=== PATIENT | male | born 1980 | race Caucasian/White ===

== ENCOUNTER 2016-07-23 10:11 | Inpatient (IN) | payer BC, OTHER ==
[~2016-07-23] VITALS: Ht 170.2 cm; Wt 64.4 kg
--- NOTE | 2016-07-24 01:00 | NUR ---
ADMISSION NOTE : Pt. is 35 years old male, admitted on 07/24/2016 at 00:15 for Heroin, Meth, Crack, ETOH dependency. Pt. is on regular diet, Full Code, NKA for food and meds. He was able to provide urine drug screen, see lab results . Primary Care Provider is in [place], [place]. Pt. denies history of seizures , denies hospitalizations within past 30 days, was in ER because of right AC abscess , confirm history of abuse, but will talk about this issue with MD only. Pt. confirms history of audio and visual hallucinations, last ones yesterday and two weeks ago. Pt. states received flu vaccination in 01/2016 and PNA vaccination within last 5 years. Educational materials provided on substance abuse, fall and seizures precautions. Pt, was arrested x5, was 9 months in the halfway. Pt. oriented to his room and the unit, encourage to notify staff with any concern. Upon admission pt. is anxious, oriented x3, calm, friendly and cooperative. XZ=368/85, HR=82/min, RR=16/min, breathing unlabored and even , SpO2=98%, [id number], Height=57, COWS=4. Skin is warm and dry, redness noticed in the right AC area. Safety measures in place : bed on lowest position with side rails x2 up for safety, call light within reach. Will continue to monitor closely and offer help. SUBSTANCE ABUSE HISTORY IS FOLOOW : Heroin 3gm QD IV since 2006, last dose on 07/23/2016. Pt.uses since 2002. Methamphetamine QD 2-3 doses smoking since 05/2016, last dose on 07/23/2016 . Pt. uses Meth. Since 05/2016. Crack 0.25gm IV QD since 05/2016, last dose on 07/23/2016. Pt. uses crack since 05/2016 Vodka 200ml QD PO since 05/2016, lasy dose on 07/23/2016. Pt. drinks alcohol since 1995. Occasionally pt. uses Cocaine 0.5gm IV a day, Marijuana 1gm smoking, x3/week. [place] HISTORY : Pt. states x7 detox. attempts, last time in [facility] in 10/2015. Longest sober period was 9 months in 2012. PAST MEDICAL HISTORY : Thoracic Kyphosis, 01/2015- Thoracic vertebral operation because of infection. Both heels fractures in 1990. ADD, Anxiety, Depression. FAMILY HISTORY : ETOH abuse, HTN, seizures.
[2016-07-24 01:26] LABS: *AMPHETAMINE, URINE POSITIVE (NEGATIVE); *BARBITURATE, URINE NEGATIVE (NEGATIVE); *CANNABINOID, URINE POSITIVE (NEGATIVE); *COCCAINE, URINE POSITIVE (NEGATIVE); *OPIATE, URINE POSITIVE (NEGATIVE); *PHENCYCLIDINE SCREEN,URINE NEGATIVE (NEGATIVE)
[2016-07-24] MEDS ORDERED: LOPERAMIDE HCL 2 MG CAPSULE PO PRN ×2 (02:00)
[2016-07-24] MEDS ORDERED: LORAZEPAM 1 MG TABLET PO PRN ×2 (02:00)
[2016-07-24] MEDS ORDERED: THIAMINE HCL 200 MG/2 ML VIAL IM ONE (02:00)
[2016-07-24] MEDS ORDERED: diphenhydrAMINE 50 MG CAPSULE PO PRN (02:00)
[2016-07-24] MEDS ORDERED: ONDANSETRON ODT 4 MG TAB.RAPDIS SL PRN (02:00)
[2016-07-24] MEDS ORDERED: LORAZEPAM 2 MG/1 ML VIAL IM PRN (02:00)
[2016-07-24] MEDS ORDERED: HYDROXYZINE PAMOATE 25 MG CAPSULE PO PRN (02:00)
[2016-07-24] MEDS ORDERED: MAGNESIUM HYDROXIDE 30 ML LIQUID UDC PO PRN (02:00)
[2016-07-24] MEDS ORDERED: CLONIDINE HCL 0.1 MG TABLET PO PRN (02:00)
[2016-07-24] MEDS ORDERED: BUPRENORPHINE HCL 2 MG TAB.SUBL SL PRN (02:00)
[2016-07-24] MEDS ORDERED: ACETAMINOPHEN 325 MG TABLET PO PRN (02:00)
[2016-07-24] MEDS ORDERED: MAG HYDROX/AL HYDROX/SIMETH 30 ML LIQUID UDC PO PRN (02:00)
[2016-07-24] MEDS ORDERED: THIAMINE HCL 200 MG/2 ML VIAL ONE (02:20)
[2016-07-24 03:02] LABS: BASOPHILS # (AUTO) 0.1 K/uL (0.0-0.2); BASOPHILS % (AUTO) 1.3 % (0.0-2.0); EOSINOPHILS # (AUTO) 0.2 K/uL (0.0-0.7); EOSINOPHILS % (AUTO) 3.8 % (0.0-7.0); HEMATOCRIT 45.6 % (40.0-50.0); HEMOGLOBIN 15.3 g/dL (14.0-18.0); LYMPHOCYTES # (AUTO) 1.5 K/uL (0.8-4.8); LYMPHOCYTES % (AUTO) 28.1 % (20.5-51.5); MEAN CORPUSCULAR HEMOGLOBIN 29.4 uug (27.0-31.0); MEAN CORPUSCULAR HGB CONC 34 g/dL (32.0-37.0); MEAN CORPUSCULAR VOLUME 87.9 fL (82.0-92.0); MONOCYTES # (AUTO) 0.6 K/uL (0.1-1.30); MONOCYTES % (AUTO) 11.2 % (0.0-11.0); NEUTROPHILS # (AUTO) 2.9 K/uL (1.8-8.9); NEUTROPHILS % (AUTO) 55.6 % (38.5-71.5); PLATELET COUNT (AUTO) 207 K/uL (150-450); RED BLOOD CELL COUNT(AUTO) 5.19 MIL/uL (4.70-6.10); RED CELL DISTRIBUTION WIDTH 12.5 % (11.5-14.5); WHITE BLOOD COUNT (AUTO) 5.3 K/uL (4.0-11.2)
[2016-07-24 03:11] LABS: ETHANOL < 3 MG/DL (0-0)
[2016-07-24 03:12] LABS: ALANINE AMINOTRANSFERASE 25 U/L (16-63); ALBUMIN 3.4 g/dL (3.4-5.0); ALKALINE PHOSPHATASE 108 U/L (50-136); AMYLASE 28 U/L (25-115); ASPARTATE AMINOTRANSFERASE 20 U/L (15-37); BILIRUBIN,TOTAL 0.4 mg/dL (0.2-1.0); CALCIUM 8.8 mg/dL (8.5-10.1); CHLORIDE 100 mmol/L (98-107); GFR 84 mL/min (>60); GLUCOSE 135 mg/dL (74-106); LIPASE 94 U/L (73-393); MAGNESIUM 1.9 mg/dL (1.8-2.4); POTASSIUM 3.7 mmol/L (3.5-5.1); SODIUM SERUM 139 mmol/L (136-145); TOTAL PROTEIN, SERUM 7.4 g/dL (6.4-8.2); UREA NITROGEN, BLOOD 16 mg/dL (7-18)
[2016-07-24 03:17] LABS: CARBON DIOXIDE 33 mmol/L (21-32)
[2016-07-24 03:23] LABS: THYROID STIMULATING HORMONE 1.767 mIU/mL (0.358-3.740)
[2016-07-24 03:29] LABS: HIV-1 p24 ANTIGEN NON REACTIVE (NONREACTIVE); HIV-1/2 ANTIBODY NON REACTIVE (NONREACTIVE)
[2016-07-24 04:00] VITALS: BP 105/49
[2016-07-24] MEDS ORDERED: GABA800T2 PO (04:01)
--- NOTE | 2016-07-24 06:42 | NUR ---
END OF SHIFT NOTE : Pt. is 35 years old male, admitted on 07/24/2016 at 00:15 for Heroin, Meth, Crack, ETOH dependency. Pt. is on regular diet, Full Code, NKA for food and meds. He was able to provide urine drug screen, see lab results . Pt. confirms history of audio and visual hallucinations, last ones yesterday and two weeks ago. Skin is warm and dry, redness noticed in the right AC area. Pt denies nausea, vomiting and diarrhea. No PRNs were given during my shift. V/S remain WNL. RR=16, even and unlabored, lungs clear upon auscultation, abdomen soft and non- distended. Pt denies nausea, vomiting and diarrhea. LAST CIWA=2 ,COWS=4 at 0400 , INTAKE= 651 ml, voided x 1, slept 3 hours. Safety measures in place : bed on lowest position with side rails x2 up for safety, call light within reach. Will continue to monitor closely and offer help.
--- NOTE | 2016-07-24 07:05 | NUR ---
Start of Shift Endorsement received from nightshift nurse. Pt is a 35 y/o male admitted for Heroin, meth and vodka dependence. Pt has been placed under observation until farther evaluation by Dr. Nobles. Pt did not receive any PRN medications. Reports sleeping 3 hours. PT is alert and oriented x4. Pt is in STABLE condition at this time. Remains compliant with medication and diet regimen. All needs have been met, All safety measures in place per hospital policy. Bed in lowest position, side rails up x2, call-light within reach. Will continue to monitor
[2016-07-24 08:00] VITALS: BP 117/64
[2016-07-24] MEDS: THIAMINE HCL 100 MG TABLET PO SCH (08:56)
[2016-07-24] MEDS: MULTIVITAMINS,THERAPEUTIC TABLET PO SCH (08:56)
[2016-07-24] MEDS: FOLIC ACID 1 MG TABLET PO SCH (08:56)
[2016-07-24 12:00] VITALS: BP 109/72
--- NOTE | 2016-07-24 13:20 | NUR ---
PRN Motrin Administered PRN Motrin 400mg for 5/10 generalized body pain.
[2016-07-24] MEDS: GABAPENTIN 300 MG CAPSULE PO SCH ×2 (13:29→17:00)
[2016-07-24] MEDS: IBUPROFEN 400 MG TABLET PO PRN (13:29)
--- NOTE | 2016-07-24 14:00 | NUR ---
Medication re-assessment PT reports relief from pain, rated 2/10 pain at this time. Medication was effective.
[2016-07-24 16:00] VITALS: BP 118/65
[2016-07-24] MEDS ORDERED: GABAPENTIN 300 MG CAPSULE PO SCH (17:00)
--- NOTE | 2016-07-24 18:46 | NUR ---
End of Shift Endorsement given to nightshift nurse. Pt is a 35 y/o male admitted for Heroin, meth and vodka dependence. Pt has been placed under observation until farther evaluation by Dr. Nobles, pt is being treated by PRN medications for his symptoms. Subutex taper is expected to began on 07/25/16. Pt received PRN Motrin 400mg for generalized body aches, medication was effective. Pt has spent the day in bed, reporting that he just wants to rest and catch up on sleep. PT is alert and oriented x4. Pt is in STABLE condition at this time. Remains compliant with medication and diet regimen. All needs have been met, All safety measures in place per hospital policy. Bed in lowest position, side rails up x2, call-light within reach. Will continue to monitor
--- NOTE | 2016-07-24 19:15 | NUR ---
Start of Shift Patient Received. Patient is in his room, sleeping but easily arousbale to verbal stimuli. Breathing even and non labored. Patient was admitted earlier this afternoon 07/24/16 for Opiate Dependence, under the care of Dr. Nobles, with orders placed to start 5 day Subutex and 5 day Ativan taper tomorrow morning 07/25/16. PRN Medications available for increased signs and symptoms of withdrawal. Patient verbalizes no known allergies, wishes to be full code, follows a regular diet, skin intact, placed on fall precautions. Patients past medical history of Thoracic kyphosis, Thoracic vertebral operations due to infection in 01/2015, fractures to Bilateral heels in 1990, ADD, Anxiety, and Depression. Per endorsement, patient noted with a COWS of 7 and CIWA of 7. PRN Motrin given and noted to be effective. Patient noted to sleep in intervals. All needs attended to promptly. Will continue to monitor.
[2016-07-24 20:39] VITALS: BP 118/72
[2016-07-25 00:20] VITALS: BP 122/80
[2016-07-25] MEDS: DICYCLOMINE HCL 20 MG TABLET PO PRN ×2 (02:03→17:20)
--- NOTE | 2016-07-25 02:11 | NUR ---
PRN Medication Administration Patient is noted awake with increased nausea, increased anxiety, chills, and stomach cramps. PRN Zofran, Bentyl, and Clonidine. Patient able to tolerate well. Will continue to monitor for effectiveness.
[2016-07-25 04:11] VITALS: BP 122/75
--- NOTE | 2016-07-25 07:34 | NUR ---
End of Sift Patient is in bed sleeping. Breathing even and non labored. Patient was admitted on 07/24/16 for Opiate Dependence, under the care of Dr. Nobles, with orders placed to start 5 day Subutex and 5 day Ativan taper tomorrow morning 07/25/16. PRN Medications available for increased signs and symptoms of withdrawal. Patient verbalizes no known allergies, wishes to be full code, follows a regular diet, skin intact, placed on fall precautions. Patients past medical history of Thoracic Kyphosis, Thoracic vertebral operations due to infection in 01/2015, fractures to Bilateral heels in 1990, ADD, Anxiety, and Depression. Patient was given PRN Zofran, Clonidine and Bentyl for increased signs and symptoms of withdrawal. PRN Medications noted to be effective. Patient noted to sleep in intervals. All needs attended to promptly. Will endorse to continue to monitor.
--- NOTE | 2016-07-25 07:45 | NUR ---
START OF SHIFT NOTE Pt is a 35 yr old male, AA&Ox3. Pt was admitted on 07/23/16 for Opiate/ETOH Dependence and is to start of 5 day Subutex taper as ordered. Pt is full code regular diet and NKA. Pt received Zofran PRN, Bentyl PRN, and Clonidine PRN at 0200. Medication was effective. Pt slept for 9 hrs. Pt is currently c/o anxiety and muscle aching. Fine tremors are seen. Skin is intact, warm and moist to touch. Pt c/o mild nausea. No episodes of vomiting was reported. Encouraged increase fluid intake. Will continue to f/u with eMAR. Safety precaution observed. Call light is within reach. Will continue to monitor.
[2016-07-25 08:18] VITALS: BP 149/86
[2016-07-25] MEDS: MULTIVITAMINS,THERAPEUTIC TABLET PO SCH (08:20)
[2016-07-25] MEDS: BUPRENORPHINE HCL 2 MG TAB.SUBL SL SCH ×4 (08:20→21:10)
[2016-07-25] MEDS: THIAMINE HCL 100 MG TABLET PO SCH (08:20)
[2016-07-25] MEDS: GABAPENTIN 300 MG CAPSULE PO SCH ×2 (08:20→12:45)
[2016-07-25] MEDS: FOLIC ACID 1 MG TABLET PO SCH (08:20)
[2016-07-25] MEDS ORDERED: TUBERCULIN,PURIF.PROT.DERIV. 5 TU/0.1 ML TEST ID ONE (09:00)
[2016-07-25] MEDS ORDERED: 5 DAY TAPER BUPRENORPHINE -SERENITY PROTOCOL SL PRN (09:00)
[2016-07-25 10:07] LABS: HEPATITIS B CORE AB, IgM Negative (Negative); HEPATITIS B SURFACE AG Negative (Negative)
[2016-07-25 12:47] VITALS: BP 147/102
[2016-07-25 16:00] VITALS: BP 134/96
--- NOTE | 2016-07-25 17:20 | NUR ---
PRN MEDICATION GIVEN Pt c/o abdominal cramping. Bentyl 20mg PRN was given. Medication was effective. Encouraged increase fluid intake.
--- NOTE | 2016-07-25 18:51 | NUR ---
COMMUNICATION Discussed with Dr. Ames in regards to pt c/o of insomnia. Pt stated he would take Remeron for sleep. Received new order for Remeron 15mg PO QHS for Insomnia. new order was noted and carried out.
--- NOTE | 2016-07-25 18:58 | NUR ---
END OF SHIFT Pt is a 35 yr old male, AA&Ox3. Pt was admitted on 07/23/16 for Opiate/ETOH Dependence and started on 5 day Subutex taper as ordered. Medication dl well. Pt is full code regular diet and NKA. Pt has been cooperative with plan of care and medication regime. Pt attended group session as ordered. Pt c/o abdominal cramping at 1720. Bentyl PRN was given and effective. Last COWS score was 6, CIWA score was 2. No acute distress noted. Skin is intact, warm and moist to touch. Pt denies any n/v at this time. Encouraged increase fluid intake. Safety precaution observed. Call light is within reach.
--- NOTE | 2016-07-25 19:10 | NUR ---
Start of Shift Patient Received. Patient is in activities room participating in group meeting. Patient was admitted on 07/24/16 for Opiate Dependence, under the care of Dr. Nobles, with orders placed to start 5 day Subutex. PRN Medications available for increased signs and symptoms of withdrawal. Patient verbalizes no known allergies, wishes to be full code, follows a regular diet, skin intact, placed on fall precautions. Patients past medical history of Thoracic Kyphosis, Thoracic vertebral operations due to infection in 01/2015, fractures to Bilateral heels in 1990, ADD, Anxiety, and Depression. Per endorsement, patient started on Subutex taper. Patient also started on Remeron 15mg QHS for sleep with first dose to be given tonight. Last COWS noted 6 and Last CIWA 2. All needs attended to promptly. Will continue to monitor.
[2016-07-25 20:45] VITALS: BP 135/94
[2016-07-25] MEDS ORDERED: GABAPENTIN 300 MG CAPSULE PO SCH (21:00)
[2016-07-25] MEDS: MIRTAZAPINE 15 MG TABLET PO SCH (21:10)
[2016-07-25] MEDS: GABAPENTIN 400 MG CAPSULE PO SCH (21:19)
--- NOTE | 2016-07-26 00:25 | NUR ---
Vitals, CIWA and COWS Patient refused 0000 Vitals prior to bed. Patient verbalized "If Im sleeping then ill pass." Patient noted in bed sleeping. Breathing even and non labored. No signs of pain or discomfort noted. Patients respirations noted to be 14. CIWA and COWS not able to be completed as per order. Will continue to monitor. Addendum: 07/27/16 at 0142 by GINA SANDERSON LVN Amended: Links added.
[2016-07-26 00:32] VITALS: BP 126/74
[2016-07-26 04:20] VITALS: BP 130/88
--- NOTE | 2016-07-26 07:03 | NUR ---
End of Sift Patient is in bed sleeping. Breathing even and non labored. Patient was admitted on 07/24/16 for Opiate Dependence, under the care of Dr. Nobles, with orders placed to start 5 day Subutex and 5 day Ativan taper tomorrow morning 07/25/16. PRN Medications available for increased signs and symptoms of withdrawal. Patient verbalizes no known allergies, wishes to be full code, follows a regular diet, skin intact, placed on fall precautions. Patients past medical history of Thoracic kyphosis, Thoracic vertebral operations due to infection in 01/2015, fractures to Bilateral heels in 1990, ADD, Anxiety, and Depression. No PRN medications administered. All needs attended to promptly. Will endorse to continue to monitor.
[2016-07-26 08:00] VITALS: BP 145/83
--- NOTE | 2016-07-26 08:00 | NUR ---
START OF SHIFT NOTE: REPORT RECEIVED FROM SOLDER LEVELER [employer]ED [employer] BOARDS NURSE. PT IS A 35YO MALE ADMITTED ON 07/23/16 FOR MEDICALLY SUPERVISED WITHDRAWAL: PT REPORTS USING 3GM HEROIN, 2-3 DOSES METHAMPHETAMINE, 0.25GM CRACK COCAINE, AND 200ML VODKA DAILY SINCE 05/2016. PT IS ON DAY 2 OF A 5-DAY SUBUTEX TAPER. LAST SOLDER LEVELER [employer] BOARDS COWS=8, CIWA=6. PT DID NOT REQUIRE PRN MEDICATION THROUGHOUT THE NIGHT. PT IS ON REGULAR DIET. PT REPORTS PAST MED HX OF THORACIC KYPHOSIS, THORACIC VERTEBRAL OPERATION IN 2014, BILATERAL HEEL FX IN 1990, ADD, ANXIETY, DEPRESSION. PT REPORTS NKA AND IS A FULL CODE. PT IS CURRENTLY IN BED AND REPORTS FATIGUE; PT STATES THAT NEW ORDER FOR REMERON WAS EFFECTIVE AND HE SLEPT WELL LAST NIGHT. ALL NEEDS ATTENDED AND MET AT THIS TIME. WILL CONTINUE TO MONITOR.
[2016-07-26] MEDS: FOLIC ACID 1 MG TABLET PO SCH (09:29)
[2016-07-26] MEDS: THIAMINE HCL 100 MG TABLET PO SCH (09:29)
[2016-07-26] MEDS: MULTIVITAMINS,THERAPEUTIC TABLET PO SCH (09:29)
[2016-07-26] MEDS: GABAPENTIN 400 MG CAPSULE PO SCH ×3 (09:30→21:51)
[2016-07-26] MEDS: BUPRENORPHINE HCL 2 MG TAB.SUBL SL SCH ×3 (09:30→21:52)
[2016-07-26 12:00] VITALS: BP 132/98
[2016-07-26 16:00] VITALS: BP 144/103
--- NOTE | 2016-07-26 19:10 | NUR ---
Start of Shift Patient Received. Patient is in activities room participating in group meeting. Patient was admitted on 07/24/16 for Opiate Dependence, under the care of Dr. Nobles, with orders placed to start 5 day Subutex. PRN Medications available for increased signs and symptoms of withdrawal. Patient verbalizes no known allergies, wishes to be full code, follows a regular diet, skin intact, placed on fall precautions. Patients past medical history of Thoracic Kyphosis, Thoracic vertebral operations due to infection in 01/2015, fractures to Bilateral heels in 1990, ADD, Anxiety, and Depression. Per endorsement, patient received no PRN medications during shift. Patient was active with social groups and is tolerating plan of care well. All needs attended to promptly. Will continue to monitor.
--- NOTE | 2016-07-26 19:30 | NUR ---
END OF SHIFT NOTE: PT IS A 35YO MALE ADMITTED TO [facility] ON 07/23/16 FOR MEDICALLY SUPERVISED WITHDRAWAL FROM OPIATES AND ETOH. PT REPORTS USING 3GM HEROIN, 2-3 DOSES METHAMPHETAMINE, 0.25GM CRACK COCAINE, AND 200ML VODKA DAILY SINCE 05/2016. PT CONTINUES ON DAY 2 OF A 5-DAY SUBUTEX TAPER. LAST COWS=2, CIWA=1. SUBUTEX TAPER EFFECTIVELY MANAGED S/S OF WITHDRAWAL AND COWS/CIWA SCORES REMAINED LOW AND NO PRN MEDICATIONS WERE NECESSARY. PT IS ON REGULAR DIET. PT REPORTS PAST MED HX OF THORACIC KYPHOSIS, THORACIC VERTEBRAL OPERATION IN 2014, BILATERAL HEEL FX IN 1990, ADD, ANXIETY, DEPRESSION. PT REPORTS NKA AND IS A FULL CODE. PT CONSUMED 0% OF BREAKFAST, AND 100% OF LUNCH AND DINNER, HAD INTAKE 2400ML, OUTPUT URINE X4 AND STOOL X1. PT ENDORSED TO FLOOR INSTALLER NURSE.
[2016-07-26 20:45] VITALS: BP 130/95
[2016-07-26] MEDS: MIRTAZAPINE 15 MG TABLET PO SCH (21:50)
[2016-07-26] MEDS: IBUPROFEN 400 MG TABLET PO PRN (21:51)
[2016-07-26] MEDS: DICYCLOMINE HCL 20 MG TABLET PO PRN (21:51)
--- NOTE | 2016-07-26 22:00 | NUR ---
PRN Medication Administration Patient verbalized increased stomach cramps and pain of 5/10 due to a headache. PRN Motrin and Bentyl given with routine medications. Will continue to monitor for effectiveness.
--- NOTE | 2016-07-26 23:00 | NUR ---
PRN Medication Reassessment Patient noted in bed sleeping. Breathing even and non labored. No signs of pain or discomfort noted. PRN Bentyl and Motrin noted to be effective. Will continue to monitor.
--- NOTE | 2016-07-27 04:14 | NUR ---
Vitals, CIWA and COWS Patient refused 0400 Vitals prior to bed. Patient verbalized "If Im sleeping then ill pass." Patient noted in bed sleeping. Breathing even and non labored. No signs of pain or discomfort noted. Patients respirations noted to be 14. CIWA and COWS not able to be completed as per order. Will continue to monitor. Addendum: 07/27/16 at 0414 by GINA SANDERSON LVN Amended: Links added.
--- NOTE | 2016-07-27 07:01 | NUR ---
End of Shift Patient is in bed sleeping. Breathing even and non labored. Patient was admitted on 07/24/16 for Opiate Dependence, under the care of Dr. Nobles, with orders placed to start 5 day Subutex and 5 day Ativan taper tomorrow morning 07/25/16. PRN Medications available for increased signs and symptoms of withdrawal. Patient verbalizes no known allergies, wishes to be full code, follows a regular diet, skin intact, placed on fall precautions. Patients past medical history of Thoracic kyphosis, Thoracic vertebral operations due to infection in 01/2015, fractures to Bilateral heels in 1990, ADD, Anxiety, and Depression. PRN Bentyl and Motrin administered with routine 2100 medications. All PRN medications noted to be effective. All needs attended to promptly. Will endorse to continue to continue plan of care as ordered.
--- NOTE | 2016-07-27 07:40 | NUR ---
START OF SHIFT NOTE Pt is a 35 yr old male, AA&Ox3. Pt was admitted on 07/23/16 for Opiate/ETOH Dependence and is on 5 day Subutex taper as ordered. Pt is full code regular diet and NKA. Pt received Motrin PRN and Bentyl PRN during the night. Medication was effective. Pt slept for 6 hrs. Pt is in bed resting with respirations even and unlabored. No acute distress noted. Skin is intact, warm and dry to touch. No tremors seen or felt. Pt denies any n/v at this time. Encouraged increase fluid intake. Safety precaution observed. Call light is within reach. Will continue to monitor.
[2016-07-27 08:01] VITALS: BP 112/80
[2016-07-27] MEDS ORDERED: BUPRENORPHINE HCL 2 MG TAB.SUBL SL SCH (09:00)
[2016-07-27] MEDS: MULTIVITAMINS,THERAPEUTIC TABLET PO SCH (09:23)
[2016-07-27] MEDS: GABAPENTIN 400 MG CAPSULE PO SCH ×3 (09:23→21:21)
[2016-07-27] MEDS: FOLIC ACID 1 MG TABLET PO SCH (09:23)
[2016-07-27] MEDS: THIAMINE HCL 100 MG TABLET PO SCH (09:23)
[2016-07-27 12:00] VITALS: BP 114/88
[2016-07-27] MEDS: BUPRENORPHINE HCL 2 MG TAB.SUBL SL SCH ×2 (15:06→21:21)
[2016-07-27 16:00] VITALS: BP 124/85
--- NOTE | 2016-07-27 19:30 | NUR ---
START OF SHIFT NOTE : Pt is a 35 yr old male, AA&Ox3. Pt was admitted on 07/23/16 for Opiate/ETOH Dependence and is on 5 day Subutex taper as ordered. Pt is full code regular diet and NKA. Pt is in bed resting with RR=16 , even and unlabored. No acute distress noted. Skin is intact, warm and dry to touch. No tremors seen. Pt denies any n/v at this time. Encouraged increase fluid intake. . Safety measures in place : bed on lowest position with side rails x2 up for safety, call light within reach. Will continue to monitor closely and offer help.
--- NOTE | 2016-07-27 19:35 | NUR ---
END OF SHIFT NOTE Pt is a 35 yr old male, AA&Ox3. Pt was admitted on 07/23/16 for Opiate/ETOH Dependence and is on 5 day Subutex taper as ordered. Pt is full code regular diet and NKA. Pt has been cooperative with medication regime and attended group sessions. No PRN's were given. Last COWS score was 2, CIWA score was 1. No acute distress noted. Skin is intact, warm and dry to touch. No tremors seen or felt. Pt denies any n/v at this time. Encouraged increase fluid intake. Safety precaution observed. Call light is within reach.
[2016-07-27 20:00] VITALS: BP 130/84
--- NOTE | 2016-07-27 21:00 | NUR ---
REJI ALMENDAREZ MOTRIN Pt. complains of sleeplessness, body ache 5-6/10, stomach cramps. RR=16, breathing even and unlabored. Safety measures in place : bed on lowest position with side rails x2 up for safety, call light within reach. Will continue to monitor closely and offer help.
[2016-07-27] MEDS: MIRTAZAPINE 15 MG TABLET PO SCH (21:21)
[2016-07-27] MEDS: IBUPROFEN 400 MG TABLET PO PRN (21:33)
[2016-07-27] MEDS: DICYCLOMINE HCL 20 MG TABLET PO PRN (21:33)
--- NOTE | 2016-07-27 21:55 | NUR ---
REASSESSMENT REJI FLORES MOTRIN Pt. is able to rest quietly and ready to sleep, pain level decreased to 2-3/10. RR=16, breathing even and unlabored. Safety measures in place : bed on lowest position with side rails x2 up for safety, call light within reach. Will continue to monitor closely and offer help.
--- NOTE | 2016-07-28 06:56 | NUR ---
END OF SHIFT NOTE : Patient was admitted on 07/24/16 for Opiate Dependence, under the care of Dr. Nobles, with orders placed to start 5 day Subutex and 5 day Ativan taper on 07/25/16. Patient verbalizes no known allergies, wishes to be full code, follows a regular diet, skin intact, placed on fall precautions. PRN Bentyl, Benadryl and Motrin administered with routine 2100 medications. All PRN medications noted to be effective. Pt remains compliant with the treatment plan. Pt denies nausea, vomiting and diarrhea. V/S remain WNL. RR=16, even and unlabored, lungs clear upon auscultation, abdomen soft and non- distended. Pt denies nausea, vomiting and diarrhea. INTAKE= 855 ml, voided x 2, slept 8 hours. Safety measures in place : bed on lowest position with side rails x2 up for safety, call light within reach. Will continue to monitor closely and offer help.
--- NOTE | 2016-07-28 07:00 | NUR ---
Start of Shift Notes: Received patient in his room. Alert and oriented x 4. Verbally responsive. Appears anxious and tremulous at this time. Able to make his needs known. Respirations even and unlabored. No SOB noted. Skin warm and dry to touch. Abdomen soft and non-distended. BS (+) in all 4 quadrants. No complains of N/V/D or constipation noted. Bladder non-distended. No complains of dysuria noted. Voids independently. Ambulatory ad zoltan with steady gait. Patient is a 35 year old male admitted for opiate/meth/crack cocaine and ETOH dependence who was placed on a 5-day Subutex taper as ordered. No adverse reactions noted. Has past medical hx thoracic kyphosis, both heel fractures, ADD, anxiety and depression. NKA. FULL CODE. Regular diet. On fall and seizure precautions. Educated patient on the current plan of care for the day and the medication regimen. Encouraged oral fluid intake and encouraged group participation to learn new skills to prevent relapse. Will continue to monitor closely.
[2016-07-28 08:00] VITALS: BP 109/74
[2016-07-28] MEDS: GABAPENTIN 400 MG CAPSULE PO SCH ×3 (08:13→21:50)
[2016-07-28] MEDS: MULTIVITAMINS,THERAPEUTIC TABLET PO SCH (08:13)
[2016-07-28] MEDS: BUPRENORPHINE HCL 2 MG TAB.SUBL SL SCH ×3 (08:13→21:50)
[2016-07-28] MEDS: FOLIC ACID 1 MG TABLET PO SCH (08:14)
[2016-07-28] MEDS: THIAMINE HCL 100 MG TABLET PO SCH (08:14)
[2016-07-28 12:00] VITALS: BP 127/82
[2016-07-28 16:00] VITALS: BP 130/89
--- NOTE | 2016-07-28 18:41 | NUR ---
End of Shift Notes: Patient is a 35 year old male admitted for opiate/meth/crack cocaine/EToh dependence who was placed on a 5-day Subutex taper as ordered. No adverse reactions noted. Has past medical hx of thoracic kyphosis, both heel fracture, ADD, anxiety and depression. NKA. FULL CODE. Regular diet. On fall and seizure precautions. Prior to admission, patient was using 3 grams of Heroin IV, methamphetamine 2 to 3 doses smoked, 0.25 gram of crack cocaine and 200cc of Vodka. VS monitored closely q 4 hours. No significant abnormalities noted. Withdrawal symptoms were closely monitored. Initial COWS 3, CIWA 2. Patient presented with mild bone/joint aches, mild anxiety and tremors felt not observed. Last COWS 2,/CIWA 2. Per patient, Subutex has been helping him with his withdrawal symptoms. Patient was able to participate in group despite his withdrawal symptoms. Safety precautions in place. Call light kept in reach. All needs met and attended. Will continue to monitor closely.
[2016-07-28 20:00] VITALS: BP 120/77
--- NOTE | 2016-07-28 20:00 | NUR ---
Start of Shift Pt is a 25-year old, male, admitted for Opiate dependence. Pt has completed a 3 day subutex taper and was on PRN ativan. Pt tolerated taper well. Pt has a PMHx of Hep C, Depression and Sleep Disorder. Pt has an abscess to his left arm and is on two antibiotics for treatment. I&D done 07/28/[address] Ronnie Quintanilla. Dressing on the left arm is clean, dry and intact. With wound care order. IV access on the left upper arm is patent and intact, saline flush done, no resistance noted. Pt is AAOx4, no SOB nor anxiety noted at this time. Pt is ambulatory with steady gait. No skin issues besides the I&D done by MD. . Fall, universal, seizure and safety prec in place. Call light within reach. Kept pt warm, dry and comfortable. Last COWS=2, CIWA=2. Will continue to monitor.
[2016-07-28] MEDS: DICYCLOMINE HCL 20 MG TABLET PO PRN (21:50)
[2016-07-28] MEDS: MIRTAZAPINE 15 MG TABLET PO SCH (21:50)
[2016-07-28] MEDS: IBUPROFEN 400 MG TABLET PO PRN (21:50)
--- NOTE | 2016-07-28 21:51 | NUR ---
RN note PRN Motrin and Bentyl Pt c/o headache=5/10 and Abdominal spasms=4/10. Administered Motrin 400 mg PO and Bentyl 20 mg PO, respectively. No SOB noted. Will monitor and reassess.
--- NOTE | 2016-07-28 23:05 | NUR ---
RN note reassess Pt asleep on bed, no SOB nor facial grimacing noted. Bentyl and Motrin are rendered effective. Will continue to monitor.
--- NOTE | 2016-07-29 00:05 | NUR ---
RN note Vital Signs Refusal Pt refused Vital Signs check and COWS/CIWA assessment despite explanation of risks and benefits. No SOB noted. RR=16. Will continue to monitor.
--- NOTE | 2016-07-29 04:10 | NUR ---
RN note Vital Signs Refusal Pt refused Vital Signs check and COWS/CIWA assessment despite explanation of risks and benefits. No SOB noted. RR=14. Will continue to monitor.
--- NOTE | 2016-07-29 07:25 | NUR ---
End of Shift Patient is a 35-year old, male, admitted for Opiate/Meth/Crack Cocaine and ETOH dependence. Pt was placed on a 5-day Subutex taper, started 07/25/2016. No adverse reactions noted. With PMHx of Thoracic Kyphosis, Both Heel Fractures, ADD, Anxiety and Depression. NKA. FULL CODE. Regular diet. Pt is AAOx4, no SOB nor anxiety noted at this time. Pt is ambulatory with steady gait. No skin issues. Fall, universal, seizure and safety prec in place. Call light within reach. Kept pt warm, dry and comfortable. Last COWS=1, CIWA=1, slept for 7 hours. Endorsed to AM shift nurse for continuity of care.
--- NOTE | 2016-07-29 07:38 | NUR ---
START OF SHIFT NOTE Pt is a 35 yr old male, AA&Ox3. Pt was admitted on 07/23/16 for Opiate/ETOH Dependence and is on 5 day Subutex taper as ordered. Pt is full code regular diet and NKA. Pt received Motrin PRN and Bentyl PRN during the night. Medication was effective. Pt slept for 7 hrs. Pt is in bed resting with respirations even and unlabored. No acute distress noted. Skin is intact, warm and dry to touch. No tremors seen or felt. Pt denies any n/v at this time. Encouraged increase fluid intake. Safety precaution observed. Call light is within reach. Will continue to monitor.
[2016-07-29 08:00] VITALS: BP 118/74
[2016-07-29] MEDS: GABAPENTIN 400 MG CAPSULE PO SCH ×3 (08:41→22:09)
[2016-07-29] MEDS: FOLIC ACID 1 MG TABLET PO SCH (08:41)
[2016-07-29] MEDS: THIAMINE HCL 100 MG TABLET PO SCH (08:41)
[2016-07-29] MEDS: MULTIVITAMINS,THERAPEUTIC TABLET PO SCH (08:42)
[2016-07-29] MEDS ORDERED: BUPRENORPHINE HCL 2 MG TAB.SUBL SL SCH (09:00)
[2016-07-29 12:00] VITALS: BP 122/76
[2016-07-29] MEDS: DICYCLOMINE HCL 20 MG TABLET PO SCH ×2 (14:27→22:09)
[2016-07-29] MEDS ORDERED: DICYCLOMINE HCL 20 MG TABLET PO PRN (15:00)
[2016-07-29 16:00] VITALS: BP 127/73
[2016-07-29 17:52] LABS: *AMPHETAMINE, URINE NEGATIVE (NEGATIVE); *BARBITURATE, URINE NEGATIVE (NEGATIVE); *CANNABINOID, URINE NEGATIVE (NEGATIVE); *COCCAINE, URINE NEGATIVE (NEGATIVE); *OPIATE, URINE NEGATIVE (NEGATIVE); *PHENCYCLIDINE SCREEN,URINE NEGATIVE (NEGATIVE)
--- NOTE | 2016-07-29 19:13 | NUR ---
END OF SHIFT NOTE Pt is a 35 yr old male, AA&Ox3. Pt was admitted on 07/23/16 for Opiate/ETOH Dependence and has completed 5 day Subutex taper as ordered. Pt is full code regular diet and NKA. Pt has been cooperative with medication regime and attended group sessions. No PRN's were given. Last COWS score was 0, CIWA score was 0 at 1600. No acute distress noted. Skin is intact, warm and dry to touch. No tremors seen or felt. Pt denies any n/v at this time. Encouraged increase fluid intake. Pt is to be discharged tomorrow on 07/30/16 to [place]. Urine drug screen is complete. Safety precaution observed. Call light is within reach.
[2016-07-29 20:00] VITALS: BP 130/77
--- NOTE | 2016-07-29 20:00 | NUR ---
START OF SHIFT NOTE PATIENT IS A 35 YEAR OLD MALE, ADMITTED FOR HEROIN/METH/CRACK AND ETOH. PATIENT WAS PLACED ON 5 DAYS SUBUTEX TAPER, COMPLETED . NO ADVERSE REACTION. PATIENT IS FULL CODE, REGULAR DIET AND NO KNOWN ALLERGY . PATIENT IS TO BE DISCHARGE TOMORROW. SKIN INTACT. PATIENT DID NOT REQUIRE ANY PRN MEDICATION DURING THE DAY. LAST COWS 0 AND CIWA 0. ON FALL PRECAUTION. PATIENT ALERT AND ORIENTED X 4. RESPIRATION EVEN AND UNLABORED. PATIENT STATES HE ATTENDED ALL THE GROUPS. HAD BOWEL MOVEMENT . DENIES ANY PAIN. NO N/V. SAFETY MEASURES IN PLACE. CALL LIGHT IN REACH. WILL CONTINUE TO MONITOR.
[2016-07-29] MEDS: MIRTAZAPINE 15 MG TABLET PO SCH (22:09)
[2016-07-29] MEDS ORDERED: DICY20TA28 PO (23:39)
[2016-07-29] MEDS ORDERED: HYDR-3895 PO (23:39)
[2016-07-29] MEDS ORDERED: CLON0.1T14 PO (23:39)
[2016-07-29] MEDS ORDERED: MIRT15TA7 PO (23:39)
[2016-07-30] VITALS: BP 127/58
--- NOTE | 2016-07-30 04:00 | NUR ---
COWS/CIWA/VS PATIENT REFUSED VS. CIWA/COWS UNABLE TO COMPLETE. RESPIRATION EVEN AND UNLABORED. RR 15. SAFETY MEASURES IN PLACE.CALL LIGHT IN REACH. WILL CONTINUE TO MONITOR.
--- NOTE | 2016-07-30 07:40 | NUR ---
START OF SHIFT NOTE Pt is a 35 yr old male, AA&Ox3. Pt was admitted on 07/23/16 for Opiate/ETOH Dependence and has completed 5 day Subutex taper as ordered. Medication dl well. Pt is full code regular diet and NKA. No PRN's were given during the night. Pt slept for 7 hrs. Pt is in bed resting with respirations even and unlabored. No acute distress noted. Skin is intact, warm and dry to touch. No tremors seen or felt. Pt denies any n/v at this time. Encouraged increase fluid intake. Pt is to be discharged today to [place]. UDS is complete. Safety precaution observed. Call light is within reach. Will continue to monitor.
--- NOTE | 2016-07-30 07:41 | NUR ---
END OF SHIFT NOTE PATIENT IS A 35 YEAR OLD MALE, ADMITTED FOR HEROIN/METH/CRACK AND ETOH. PATIENT WAS PLACED ON 5 DAYS SUBUTEX TAPER, COMPLETED . NO ADVERSE REACTION. PATIENT IS FULL CODE, REGULAR DIET AND NO KNOWN ALLERGY . PATIENT IS TO BE DISCHARGE TODAY. SKIN INTACT. ON FALL PRECAUTION. PATIENT ALERT AND ORIENTED X 4. RESPIRATION EVEN AND UNLABORED. PATIENT STATES HE ATTENDED ALL THE GROUPS. HAD BOWEL MOVEMENT . DENIES ANY PAIN. NO N/V. PATIENT DID NO REQUIRE ANY PRN MEDICATION DURING SHIFT. SAFETY MEASURES IN PLACE. CALL LIGHT IN REACH. WILL CONTINUE TO MONITOR. SLEPT 7 HOURS. FLUID INTAKE OF 620 ML. VOIDED X 2. NO BM. LAST COWS 0 AND CIWA 0.
[2016-07-30 08:00] VITALS: BP 108/69
[2016-07-30] MEDS: THIAMINE HCL 100 MG TABLET PO SCH (08:49)
[2016-07-30] MEDS: FOLIC ACID 1 MG TABLET PO SCH (08:49)
[2016-07-30] MEDS: GABAPENTIN 400 MG CAPSULE PO SCH (08:49)
[2016-07-30] MEDS: MULTIVITAMINS,THERAPEUTIC TABLET PO SCH (08:49)
[2016-07-30] MEDS: DICYCLOMINE HCL 20 MG TABLET PO SCH (08:49)
--- NOTE | 2016-07-30 10:10 | NUR ---
DISCHARGE NOTE Pt is a 35 yr old male, AA&Ox3. Pt was admitted on 07/23/16 for Opiate/ETOH Dependence and has completed 5 day Subutex taper as ordered. Medication dl well. Pt is full code regular diet and NKA. Pt has been cooperative with plan of care and attended group sessions. Pt was cooperative with medication regime. Pt was educated on discharge summary and prescription. Pt was able to verbalize understanding. Pt was discharge off the unit at 1006 in stable condition to [facility]. Pt left with all belongings and valuables. No home medication was brought.
[2016-08-01 17:36] LABS: *AMPHETAMINE Positive (.); *CANNABINOID (THC) Positive (.); *COCAINE Positive (.); *CODEINE Positive (.); *HYDROMORPHONE Positive (.); *METHAMPHETAMINE Positive (.); *OPIATES Positive ng/mL (Cutoff=300)
== END 2016-07-30 10:06 | disposition other institution (70) | DRG 895 ==
LOC: SRC 23:04
PROVIDERS: ADMIT Internal Medicine; ATTEND Internal Medicine
PROC: HZ2ZZZZ Detoxification Services for Substance Abuse Treatment (ICD-10-PCS; principal; 2016-07-23)
PROC: HZ31ZZZ Individual Counseling for Substance Abuse Treatment, Behavioral (ICD-10-PCS; 2016-07-24)
PROC: HZ41ZZZ Group Counseling for Substance Abuse Treatment, Behavioral (ICD-10-PCS; 2016-07-25)
DX: F10.230 Alcohol dependence with withdrawal, uncomplicated (principal); L02.413 Cutaneous abscess of right upper limb; F11.23 Opioid dependence with withdrawal; Y90.9 Presence of alcohol in blood, level not specified; Z59.0 Homelessness; F15.23 Other stimulant dependence with withdrawal; F14.23 Cocaine dependence with withdrawal; F12.10 Cannabis abuse, uncomplicated; F17.210 Nicotine dependence, cigarettes, uncomplicated
CPT/HCPCS: 36415; 70030-TC; 80307; 80324; 80349; 80353; 80361; 83690; 83735; 84443; 85025; 86580; 86705; 87340; 87806; G6040-TC; J3411; Q0162; Q0163